=== PATIENT | female | born 1955 | race Caucasian/White ===

== ENCOUNTER 2023-04-15 02:00 | Inpatient (IN) | payer MEDICARE ==
[~2023-04-15] VITALS: Ht 162.5 cm; Wt 76.7 kg
[2023-04-15] VITALS (7 sets, daily range): BP systolic 140–173; BP diastolic 70–98
[2023-04-15 02:49] LABS: BASO % 0.6 % (0.0-1.0); EOS % 0.1 % (1.0-4.0); HEMATOCRIT 43.6 % (37.0-47.0); LYMPH # 0.4 10*3/uL (1.3-4.4); MEAN CELL VOLUME 93.8 fl (81.0-99.0); MEAN CORPUSCULAR HGB 29.5 pg (27.0-31.0); MEAN CORPUSCULAR HGB CONC 31.4 g/dl (33.0-37.0); MEAN PLATELET VOLUME 9.9 fl (9.6-12.3); MONO # 0.7 10*3/uL (0.1-1.0); MONO % 9.1 % (3.0-9.0); NEUT # 6.1 10*3/uL (2.3-7.9); NEUT % 84.1 % (47.0-73.0); PLATELET COUNT AUTOMATED 182 10*3/uL (130-400); RED BLOOD COUNT 4.65 10*6/uL (4.10-5.10); RED CELL DISTRI WIDTH 13.8 % (0-14.5); WHITE BLOOD COUNT 7.3 10*3/uL (4.8-10.8)
[2023-04-15 03:02] LABS: ACT PARTIAL THROMBO TIME 28.2 SECONDS (20.0-32.1)
[2023-04-15 03:11] LABS: ALKALINE PHOSPHATASE 133 U/L (46-116); BUN 15 mg/dl (9-23); CHLORIDE 108 mmol/L (98-107); LIPASE 39 U/L (12-53); POTASSIUM 3.8 mmol/L (3.4-5.1); SGPT/ALT 69 U/L (5-49); TOTAL PROTEIN 7.3 gm/dL (6.0-8.0)
[2023-04-15 03:13] LABS: ETHYL ALCOHOL < 3.0 mg/dl (<3)
[2023-04-15 06:06] LABS: BILIRUBIN Negative (Negative); BLOOD 1+ (Negative); CLARITY Clear (Clear); COLOR Yellow (Yellow); GLUCOSE 1+ (Negative); KETONE Trace (Negative); LEUKO ESTERASE Negative (Negative); NITRITE Positive (Negative); PH 5.5 (4.5-8.0)
[2023-04-15 06:12] LABS: URINE AMPHETAMINES Negative (1000ng/ml); URINE BARBITURATES Negative (200ng/ml); URINE BENZODIAZEPINES Negative (200ng/ml); URINE CANNABINOIDS (THC) Negative (50ng/ml); URINE COCAINE Negative (300ng/ml); URINE METHADONE Negative (300ng/ml); URINE OPIATES Negative (300ng/ml); URINE PHENCYCLIDINE Negative (25ng/ml)
[2023-04-15 06:28] LABS: BACTERIA 4+
[2023-04-16] VITALS: BP 108/56
[2023-04-16 06:31] LABS: ALKALINE PHOSPHATASE 130 U/L (46-116); BUN 12 mg/dl (9-23); CHLORIDE 108 mmol/L (98-107); CHOLESTEROL 125 mg/dL (<200); FREE T4 0.98 ng/dl (0.89-1.76); LDL CHOLESTEROL 74 mg/dL (9-159); POTASSIUM 4.2 mmol/L (3.4-5.1); SGPT/ALT 71 U/L (5-49); TOTAL PROTEIN 6.7 gm/dL (6.0-8.0); TRIGLYCERIDES 76 mg/dl (<150)
[2023-04-16 06:32] LABS: EOS # 0.2 10*3/uL (0.0-0.4); EOS % 3.6 % (1.0-4.0); HEMATOCRIT 42.7 % (37.0-47.0); LYMPH # 0.9 10*3/uL (1.3-4.4); LYMPH % 22.1 % (27.0-41.0); MEAN CELL VOLUME 95.3 fl (81.0-99.0); MEAN CORPUSCULAR HGB CONC 30.4 g/dl (33.0-37.0); MEAN PLATELET VOLUME 10.4 fl (9.6-12.3); MONO # 0.5 10*3/uL (0.1-1.0); MONO % 12.5 % (3.0-9.0); NEUT # 2.5 10*3/uL (2.3-7.9); NEUT % 59.8 % (47.0-73.0); PLATELET COUNT AUTOMATED 164 10*3/uL (130-400); RED BLOOD COUNT 4.48 10*6/uL (4.10-5.10); WHITE BLOOD COUNT 4.2 10*3/uL (4.8-10.8)
[2023-04-16 08:00] VITALS: BP 128/69
[2023-04-16 08:41] LABS: VITAMIN D, 25-HYDROXY 20.2 ng/mL (30-100)
[2023-04-16 12:00] VITALS: BP 141/82
[2023-04-16 16:00] VITALS: BP 135/53
[2023-04-16 20:00] VITALS: BP 129/87
[2023-04-17] VITALS: BP 132/76
[2023-04-17 08:00] VITALS: BP 141/66
[2023-04-17] MEDS ORDERED: METOPROLOL SUCC50 M1 PO (09:02)
[2023-04-17] MEDS ORDERED: ATORVASTATIN CA40 M1 PO (09:02)
[2023-04-17] MEDS ORDERED: ASPIRIN ADULT L81 M2 PO (09:02)
[2023-04-17] MEDS ORDERED: OMNICEF300 MG PO (09:05)
[2023-04-17] MEDS ORDERED: VITAMIN D350 MCG PO (09:11)
== END 2023-04-17 11:38 | disposition home or self-care (01) | DRG 280 ==
LOC: ED 02:00 → 5E 06:00 → EDHOLD 06:00 → 5E 19:21
PROVIDERS: Internal Medicine; Registered Nurse; ADMIT Internal Medicine; ATTEND Internal Medicine
PROC: 4A02XM4 Measurement of Cardiac Total Activity, External Approach (ICD-10-PCS; principal; 2023-04-16)
PROC: 3E073KZ Introduction of Other Diagnostic Substance into Coronary Artery, Percutaneous Approach (ICD-10-PCS; 2023-04-16)
DX: I21.4 Non-ST elevation (NSTEMI) myocardial infarction (principal); N17.0 Acute kidney failure with tubular necrosis; N39.0 Urinary tract infection, site not specified; I10 Essential (primary) hypertension; R73.9 Hyperglycemia, unspecified; R74.01 Elevation of levels of liver transaminase levels; G90.8 Other disorders of autonomic nervous system; B96.20 Unspecified Escherichia coli [E. coli] as the cause of diseases classified elsewhere; W18.39XA Other fall on same level, initial encounter; Y93.89 Activity, other specified; Y92.9 Unspecified place or not applicable; Y99.8 Other external cause status

== ENCOUNTER 2023-11-08 12:52 | Emergency (ER) | payer MEDICARE ==
[~2023-11-08] VITALS: Ht 154.9 cm; Wt 63.5 kg
[~2023-11-08 12:52] MED LIST: ASPIRIN ADULT L81 M2 PO; ATORVASTATIN CA40 M1 PO; METOPROLOL SUCC50 M1 PO; OMNICEF300 MG PO; VITAMIN D350 MCG PO
[2023-11-08] MEDS ORDERED: diphenhydrAMINE hydrochloride 50 MG/ML VIAL IV ONE (13:00)
[2023-11-08] MEDS ORDERED: SODIUM CHLORIDE 0.9% 1,000 ML IV ONE (13:00)
[2023-11-08] MEDS ORDERED: EPINEPHrine Hydrochloride 1 MG/ML AMP IM ONE (13:00)
[2023-11-08] MEDS ORDERED: methylPREDNISolone sod succ 125 MG VIAL IV ONE (13:00)
[2023-11-08] MEDS ORDERED: FAMOTIDINE 50 ML IV ONE (13:00)
[2023-11-08] MEDS ORDERED: METFORMIN XR500 MG PO (13:05)
[2023-11-08] MEDS ORDERED: LISINOPRIL2.5 MG PO (13:05)
[2023-11-08 13:17] LABS: BASO # 0.1 10*3/uL (0.0-0.1); BASO % 0.3 % (0.0-1.0); EOS # 0.1 10*3/uL (0.0-0.4); EOS % 0.4 % (1.0-4.0); HEMATOCRIT 49.3 % (37.0-47.0); LYMPH # 1.2 10*3/uL (1.3-4.4); MEAN CELL VOLUME 94.8 fl (81.0-99.0); MEAN CORPUSCULAR HGB 30.2 pg (27.0-31.0); MEAN CORPUSCULAR HGB CONC 31.8 g/dl (33.0-37.0); MEAN PLATELET VOLUME 10.4 fl (9.6-12.3); MONO # 0.7 10*3/uL (0.1-1.0); MONO % 4.2 % (3.0-9.0); NEUT # 14.3 10*3/uL (2.3-7.9); NEUT % 87.3 % (47.0-73.0); PLATELET COUNT AUTOMATED 228 10*3/uL (130-400); RED CELL DISTRI WIDTH 13.2 % (0-14.5); WHITE BLOOD COUNT 16.4 10*3/uL (4.8-10.8)
[2023-11-08 13:38] LABS: POTASSIUM 4.9 mmol/L (3.4-5.1)
[2023-11-08] MEDS ORDERED: AVPAK AZITHROM250 M1 PO (14:05)
== END 2023-11-08 15:32 | disposition home or self-care (01) ==
LOC: ED 12:52
PROVIDERS: Emergency Medicine
DX: T78.2XXA Anaphylactic shock, unspecified, initial encounter (principal); J32.9 Chronic sinusitis, unspecified; R55 Syncope and collapse; I10 Essential (primary) hypertension; E78.00 Pure hypercholesterolemia, unspecified; E11.9 Type 2 diabetes mellitus without complications; Z98.890 Other specified postprocedural states